=== PATIENT | female | born 1960 | race Caucasian/White ===

== ENCOUNTER → 2016-04-14 | Outpatient (CLI) | payer MEDICARE ==
[~2016-04-14] MED LIST: BETA.05%T TOP; ESCI10TA PO; LISI-360 PO; LISI-519 PO; NAPR-576 PO; TRAZ50TA12 PO; TRAZ50TA4 PO; VENTAER INH
[2016-04-14 10:36] LABS: AUTOMATED NEUTROPHIL # 7.1 TH/MM3 (1.8-7.7); BASOPHIL # 0.1 TH/MM3 (0-0.2); EOSINOPHIL # 0.5 TH/MM3 (0-0.4); EOSINOPHIL % 5.6 % (0.0-4.0); HEMATOCRIT 39.2 % (35.0-46.0); LYMPH % 9.6 % (9.0-44.0); LYMPHOCYTE # 0.9 TH/MM3 (1.0-4.8); MEAN CELL VOLUME 98.3 FL (80.0-100.0); MEAN CORPUSCULAR HEMOGLOBIN 35.4 PG (27.0-34.0); NEUT % 76.8 % (16.0-70.0); PLATELET COUNT 390 TH/MM3 (150-450); RED BLOOD COUNT 3.99 MIL/MM3 (4.00-5.30); RED CELL DISTRIBUTION WIDTH 13.3 % (11.6-17.2); WHITE BLOOD COUNT 9.2 TH/MM3 (4.0-11.0)
[2016-04-14 10:38] LABS: APTT (PATIENT) 27.5 SEC (24.3-30.1); HEMO FLAGS AUTO DIFF; INTERNATIONAL NORMALIZED RATIO 0.9 RATIO; PROTHROMBIN TIME - PATIENT 10.4 SEC (9.8-11.6)
[2016-04-14 10:58] LABS: ALKALINE PHOSPHATASE 87 U/L (45-117); ALT (GPT) 17 U/L (10-53); ANION GAP 9 MEQ/L (5-15); AST (GOT) 16 U/L (15-37); BICARBONATE 25.9 MEQ/L (21.0-32.0); BLOOD UREA NITROGEN 7 MG/DL (7-18); CHLORIDE 98 MEQ/L (98-107); GLOMERULAR FILTRATION RATE 78 ML/MIN (>89); GLUCOSE,FASTING 83 MG/DL (74-99); POTASSIUM 4.3 MEQ/L (3.5-5.1); SODIUM (NA) 133 MEQ/L (136-145); TOTAL BILIRUBIN ADULT 0.5 MG/DL (0.2-1.0)
[2016-04-14 11:28] LABS: SCAN/DIFF AUTO DIFF CONFIRMED
--- NOTE | 2016-04-14 11:28 | RADRPT ---
EXAM DATE/TIME: 04/14/2016 10:12 [place] COMPARISON: CT PULMONARY ANGIOGRAM, April 07, 2014, 8:50. INDICATIONS : Evaluate for pneumonia, pneumothorax, or communicable disease. Pre op for cervix surgery. MEDICAL HISTORY : None. SURGICAL HISTORY : Infusaport. ENCOUNTER: Initial ACUITY: 1 day PAIN SCORE: 0/10 LOCATION: Bilateral chest FINDINGS: PA and lateral views of the chest demonstrate the lungs to be symmetrically aerated without evidence of mass, infiltrate or effusion. The cardiomediastinal contours are unremarkable. Osseous structure s are intact. CONCLUSION: 1. No acute disease. [id number]-[id number] tip in superior vena cava. David Murdock MD on April 14, 2016 at 11:25 Board Certified Radiologist. This report was verified electronically.
--- NOTE | 2016-04-15 20:21 | EKG ---
Date Performed: 04/14/2016 Time Performed: 09:50:32 PTAGE: 55 years EKG: Sinus rhythm WITH OCCASIONAL VENTRICULAR PREMATURE COMPLEXES BORDERLINE ECG INTERPRETATION BASED ON A DEFAULT AGE OF 40 YEARS Compared to the PREVIOUS TRACING from 08/29/14, no significant change DOCTOR: Lenny Santamaria Interpretating Date/Time 04/15/2016 20:21:10
== END ==
LOC: CPRE 09:16
PROVIDERS: ATTEND Obstetrics & Gynecology Gynecologic Oncology
DX: Z01.810 Encounter for preprocedural cardiovascular examination (principal); Z01.811 Encounter for preprocedural respiratory examination; Z01.812 Encounter for preprocedural laboratory examination; C53.9 Malignant neoplasm of cervix uteri, unspecified
CPT/HCPCS: 36415; 71020; 80053; 85025; 85610; 85730; 93005

== ENCOUNTER → 2016-04-26 | Day surgery (SDC) | payer MEDICARE ==
[~2016-04-26] VITALS: Ht 152.4 cm; Wt 59.4 kg
[~2016-04-26] MED LIST changes: -BETA.05%T TOP; -ESCI10TA PO; +INSULIN HUMAN REGULAR 1,000 UNITS/10 ML VIAL SQ PRN; +KETOROLAC TROMETHAMINE 30 MG/ML (IVP) VIAL ONE; +LACTATED RINGER'S 1000 ML IV SCH; -LISI-360 PO; +METOPROLOL TARTRATE 25 MG TAB PO PRN; +MIDAZOLAM HCL 2 MG/2 ML VIAL ONE; -NAPR-576 PO; +ONDANSETRON HCL 4 MG/2 ML VIAL IV PUSH ONE; +PROPOFOL 200 MG/20 ML AMP IV ONE; +SODIUM CHLORID 0.9% 500 ML IV SCH; -TRAZ50TA4 PO; -VENTAER INH; +ePHEDrine/NS 25 MG/5 ML SYR IV ONE; +fentaNYL CITRATE 250 MCG/5 ML AMP ONE
[2016-04-26 11:49] VITALS: BP 142/85; PULSE 83; RESP 18; TEMP 98.3; O2SAT 97
[2016-04-26 15:10] VITALS: BP 139/70; PULSE 91; RESP 16; TEMP 97.4; O2SAT 100
--- NOTE | 2016-04-27 10:04 | MP ---
cc: MAHIN DRAKE M.D. ROHITH DENNIS MD, KATHLEEN M. M.D. DATE OF SURGERY 04/26/2016 PREOPERATIVE DIAGNOSIS 1. 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 2. Status post previous radiation cisplatin chemotherapy. 3. Recent and the high-grade dysplasia on Pap smear and cervix biopsy. POSTOPERATIVE DIAGNOSIS 1. 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 2. Status post previous radiation cisplatin chemotherapy. 3. Recent and the high-grade dysplasia on Pap smear and cervix Biopsy. 4. Diffuse atrophic changes consistent with menopause and radiation. SURGEON Rohith Dennis MD KILN FIRER [place] student assistant ANESTHESIA General endotracheal anesthesia ESTIMATED BLOOD LOSS 10 cc HISTORY A 55-year-old female with stage IIB squamous cell carcinoma of the cervix treated with primary radiation cisplatin chemotherapy. She has been followed for surveillance without overt evidence of recurrent disease. Pap smear in recent weeks showed a high-grade dysplasia that lead to colposcopy biopsy. Colposcopy showed diffuse postmenopausal and radiation type changes without obvious neoplastic change. Nevertheless, biopsy was obtained and the biopsy was interpreted as high-grade dysplasia. She was counseled regarding these findings and the need to further evaluate to more clearly identify the presence or absence of cancer. On exam under anesthesia, possible conization was recommended and she presents now for that endeavor. She is seen in the preop holding area where these findings are again discussed and reviewed. Questions were answered. She expressed a good understanding and agreed to move forward. FINDINGS On exam under anesthesia, there is no appreciable inguinal adenopathy. External genitalia without mass or lesion. There are moderate atrophic changes throughout vaginal mucosa. The cervix is flush with the vaginal apex and on visual and palpable inspection, it is difficult to delineate the cervix. The uterus is small. On rectovaginal exam, there is no parametria nodularity. No mass effect. On colposcopic exam after application of dilute acetic acid again noted are diffuse post radiation changes and menopausal changes, but there is no obvious neoplastic change. There is a slightly raised nodule at the distal vagina at the 3 o'clock position. There is some acetowhite and vascular changes at the 9 o'clock position mid right vagina and there is some subtle acetowhite vascular changes on the cervix at the 12 o'clock position all of which most favor radiation changes. Nevertheless, each of these sites were biopsied. Due to the profound anatomical changes and the difficulty at clearly delineating the cervix, it was felt that morbidity associated with attempted cone biopsy may exceed benefit. A cone biopsy was not performed. PROCEDURE The patient taken to the operating room, placed in the dorsal lithotomy position. After laryngeal mask anesthesia was administered, time-out was undertaken. The patient was identified by sight recognition and hospital ID bracelet and the proposed procedure was reviewed and confirmed. She was placed in the lithotomy position, prepped and draped in a sterile fashion. Dilute acetic acid was applied to all surfaces of the cervix and vagina. Colposcopy was performed with findings as described above. A change of sterile gloves was undertaken. Biopsies were taken from the three areas as described above where subtle abnormalities were detected. So each biopsy was superficial and each rendered hemostatic with topical Monsel's solution. Pelvic exam confirmed there were no remaining foreign objects in the vagina. There was good hemostasis. Preliminary and final counts were correct. She was returned to dorsal supine position and was pending reversal of anesthesia when I left the operating room to precede her to the Post Anesthesia Care Unit. MD ROMEL Viveros/RUBY /1:57 PM /9:53 AM
== END | disposition home or self-care (01) ==
LOC: HSDC 10:54
PROVIDERS: ATTEND Obstetrics & Gynecology Gynecologic Oncology
DX: C53.9 Malignant neoplasm of cervix uteri, unspecified (principal); N87.1 Moderate cervical dysplasia; I10 Essential (primary) hypertension; Z78.0 Asymptomatic menopausal state; Z92.3 Personal history of irradiation
CPT/HCPCS: 00940; 57454; 86850; 86900; 86901; 88305; J1885; J2250; J2405; J3010; J7120

== ENCOUNTER 2017-01-31 10:24 | Emergency (ER) | payer MEDICARE, MEDICAID ==
[~2017-01-31] VITALS: Ht 165.1 cm; Wt 64.0 kg
[~2017-01-31 10:24] MED LIST changes: -INSULIN HUMAN REGULAR 1,000 UNITS/10 ML VIAL SQ PRN; -KETOROLAC TROMETHAMINE 30 MG/ML (IVP) VIAL ONE; -LACTATED RINGER'S 1000 ML IV SCH; -METOPROLOL TARTRATE 25 MG TAB PO PRN; -MIDAZOLAM HCL 2 MG/2 ML VIAL ONE; -ONDANSETRON HCL 4 MG/2 ML VIAL IV PUSH ONE; -PROPOFOL 200 MG/20 ML AMP IV ONE; -SODIUM CHLORID 0.9% 500 ML IV SCH; -ePHEDrine/NS 25 MG/5 ML SYR IV ONE; -fentaNYL CITRATE 250 MCG/5 ML AMP ONE
[2017-01-31 10:26] VITALS: BP 166/80; PULSE 103; RESP 16; TEMP 97.8; O2SAT 98
--- NOTE | 2017-01-31 11:06 | PD ---
HPI Chief Complaint: Skin Problem Time Seen by Provider: 10:44 Travel History International Travel<30 days: No Contact w/Intl Traveler<30days: No Traveled to known affect area: No History of Present Illness HPI Patient comes in complaining of painful lump in her right axillary has been going on for several months. Patient reports over the past 2 weeks the lump has been getting somewhat larger and more painful. Patient describes pain as a throbbing pain that radiates into her hand. Patient denies doing anything for this. Patient states squeezing her hand seems to help improve the pain. Touching the lump makes the pain worse. Denies any fevers, weight loss, chest pain, shortness of breath, neck pain, headache, numbness or tingling anywhere, loss change in bowel or bladder. Patient reports a history of cervical cancer requiring chemo and radiation therapy last in 2011. Patient reports she has not seen her oncologist since earlier this year. Patient states she has not told her primary care doctor about this bump yet either. History Past Medical Histgory Tetanus Vaccination: Unknown Menopausal: Yes Hx Cancer: Yes (CERVIX) Social History Alcohol Use: Yes Tobacco Use: Yes (/2 ppd) Allergies-Medications (Allergen,Severity, Reaction): Coded Allergies: No Known Allergies (Unverified Adverse Reaction, Unknown, 01/31/17) Reported Meds & Prescriptions Reported Meds & Active Scripts Active Reported Trazodone (Trazodone HCl) 50 Mg Tab 50 Mg PO HS Lisinopril 5 Mg Tab 5 Mg PO DAILY Review of Systems Except as stated in HPI: all other systems reviewed are Neg Physical Exam Narrative GENERAL: Well-developed, well nourished, in no acute distress, and non-ill appearing. SKIN: Focused skin assessment warm and dry. Tender swollen lymph node noted right axilla. There is no erythematous, induration, fluctuation, crepitus, drainage, or other lesions appreciated. HEAD: Atraumatic. Normocephalic. EYES: Pupils equal and round. EOMI. No scleral icterus. No injection or drainage. ENT: No nasal bleeding or discharge. Mucous membranes pink and moist. NECK: Trachea midline. Supple. No nuclear rigidity. RESPIRATORY: No accessory muscle use. No respiratory distress. MUSCULOSKELETAL: No obvious deformities. No clubbing. No cyanosis. No edema. Full range of motion. NEUROLOGICAL: Awake and alert. No obvious cranial nerve deficits. Motor grossly within normal limits. Normal speech. PSYCHIATRIC: Appropriate mood and affect; insight and judgment normal. Data Data Last Documented VS Vital Signs Date Time Temp Pulse Resp B/P (MAP) Pulse Ox O2 Delivery O2 Flow Rate FiO2 01/31/17 10:26 97.8 103 16 166/80 (108) 98 MDM Medical Screen Exam Complete: Yes Emergency Medical Condition: No Narrative Course History and physical exam findings are not consistent with an emergent medical condition. She was given the option of receiving additional care, but has declined. Therefore the appropriate counseling recommendations were discussed with the patient and she was instructed to follow-up with her primary care physician as soon as possible for reevaluation. Patient was also informed of community resources from which she can obtain additional care. She is agreeable and verbalizes an understanding of the proposed plan. The patient states she will immediately return to the emergency department if her current complaints do not improve, new symptoms arise, or emergent condition develops. Patient ambulated out of the emergency department without difficulty. Primary Impression: Encounter for medical screening examination Disposition: [facility]-ED USE ONLY Condition: Stable Dax Finch Jan 31, 2017 11:06
== END 2017-01-31 11:00 | disposition left against medical advice (07) ==
LOC: NEPK 10:24
DX: R22.31 Localized swelling, mass and lump, right upper limb (principal)
CPT/HCPCS: 99281

== ENCOUNTER → 2017-03-27 | Day surgery (SDC) | payer MEDICARE, MEDICAID ==
[~2017-03-27] MED LIST changes: +ACETAMINOPHEN/HYDROcodone 325 MG/5 MG TAB ONE; +KETOROLAC TROMETHAMINE 30 MG/ML (IVP) VIAL IV PUSH ONE; +LACTATED RINGER'S 1000 ML INJ 1,000 ML ONE; +MIDAZOLAM HCL 2 MG/2 ML VIAL ONE; +ONDANSETRON HCL 4 MG/2 ML VIAL IV PUSH ONE; +PROPOFOL 100 MG/10 ML INJ IV ONE
--- NOTE | 2017-03-29 13:46 | TN ---
cc: MAULIK OSBORN M.D. DATE OF SURGERY: 03/27/2017 PREOPERATIVE DIAGNOSIS Right upper inner mass to the upper extremity measuring approximately 6 cm. 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 PROCEDURE Excision of 6 cm soft cystic-like mass associated with the upper portion of the ulnar nerve, suspicious for schwannoma. ANESTHESIA General. SURGEON Dr. Osborn. INDICATION This is a pleasant 56-year-old female who has this growing mass in her upper extremity on the medial aspect. She had imaging showing the cystic-like mass. On clinical exam it was suspicious for schwannoma because of the pains that were associated with gentle pressure of this structure. Plans were made for excision. PROCEDURE The patient was taken to the operating room and placed in the supine position. After anesthesia her right upper extremity and axillary region were prepped with Betadine. Time-out was done. Antibiotics were given. We made a linear incision overlying the mass, dissect through the subcutaneous tissue identifying this mass. It is just underneath the fascia of the biceps muscle on the medial aspect, this fascia is incised sharply. We then are able to easily visualize this mass. Tissue around it is gently teased away using a Kitner device and gentle pressure. We are able to identify the ulnar nerve both proximally and distally, preserving the nerve. The structure is very closely associated with the nerve on the more proximal end of the mass. The distal end is easily teased away from the nerve using gentle retraction and blunt dissection and once we are identifying the extent of the nerve we are able to carefully tease this away from the nerve sheath using sharp dissection. The proximal edge is very closely associated with a nerve and I may have left a little bit of this tumor because I did not want to injure the ulnar nerve. The area was completely irrigated. Hemostasis was assured. The mass is removed and labeled as a mass of the upper arm. We then close the fascia and closed the deep layer with a 3-0 Vicryl and the skin is closed with 4-0 Vicryl. Steri-Strips were applied. Sterile bandage was applied. The patient tolerated the procedure well and in the recovery room she appeared to have full function of her upper extremity with good podiatrist assistant, although slightly weakened to the right extremity. She had good flexion/extension of her wrist and elbow. MD MICHELLE Novoa/TLL /1:16 PM /1:32 PM
== END | disposition home or self-care (01) ==
LOC: ESDC 07:58
PROVIDERS: ATTEND Surgery
DX: D36.10 Benign neoplasm of peripheral nerves and autonomic nervous system, unspecified (principal)
CPT/HCPCS: 00400; 11606; 88307; J1885; J2250; J2405; J3010; J7120; 88305